=== PATIENT | female | born 1935 | race Caucasian/White ===

== ENCOUNTER 2016-09-14 07:47 | Inpatient (IN) | payer MEDICARE ==
--- NOTE | 2016-09-08 15:30 | HP ---
HISTORY AND PHYSICAL: DATE OF OFFICE VISIT: 09/03/16 DATE OF SURGERY: 09/14/16 SURGEON: Libertad Black MD PROCEDURE: Right total hip arthroplasty. CHIEF COMPLAINT: Right hip pain. HISTORY OF PRESENT ILLNESS: Ms. Espinoza is a 81-year-old female with complaints of right hip pain secondary to severe degenerative osteoarthritis. She has failed conservative management and has elected to proceed with a right total hip arthroplasty, which is scheduled for 09/14/16. PAST MEDICAL HISTORY: Pacemaker, first-degree AV block, AV stenosis, high cholesterol, hypertension, AFib, and mitral valve disease. PAST SURGICAL HISTORY: Pacemaker placement, left ankle ORIF, tubal ligation, deviated septum surgery, teeth extraction, cataracts removal. CURRENT MEDICATIONS: Tylenol, diltiazem, multivitamin, magnesium, vitamin C, Bone Restore, potassium, milk thistle, vitamin D3, CoQ10, Warren-3, warfarin, aspirin, atorvastatin, B complex, Flovent. ALLERGIES: SULFACETAMIDE and MIGNON INHIBITORS. FAMILY HISTORY: Breast cancer and heart disease. SOCIAL HISTORY: A 81-year-old female, she lives alone. She does not smoke or use drugs. She uses occasional alcohol. REVIEW OF SYSTEMS: A complete 14-point review of systems was reviewed with the patient. All is negative or noncontributory. PHYSICAL EXAMINATION GENERAL: She is well-developed, well-nourished. She is in no acute distress. VITAL SIGNS: She stands 5 feet tall, is 160 pounds. Her blood pressure is 130/ 94, heart rate is 88. HEENT: Normocephalic, atraumatic. NECK: Supple. No palpable lymph nodes. Trachea is midline. PULMONARY: The lungs are clear to auscultation bilaterally. CARDIO: Regular rate and rhythm. ABDOMEN: Soft, nontender, nondistended. NEUROLOGIC: She is alert and oriented x3. Cranial nerves II through XII are intact. MUSCULOSKELETAL: Right lower extremity, the skin is intact. She has limited range of motion with internal and external rotation of her right hip and she walks with an antalgic type gait. Her lower extremity muscle group strengths are intact at 5/5. She has 2+ dorsalis pedis pulses. ASSESSMENT AND PLAN: Ms. Espinoza is a 81-year-old female who complaints of right hip pain secondary to advanced osteoarthritis. She has failed conservative management and has elected to proceed with a right total hip arthroplasty, which is scheduled for 09/14/[address] Black discussed the risks and benefits of the surgery at today's visit and all her questions were answered. Colace and Percocet were sent to her pharmacy for postoperative pain control. She has prescription for Coumadin currently, so that was not sent at today's visit. She will follow up with Dr. Black in 10 to 14 days after the surgery. NADER HUANG [id number]/[facility] #: [id number] [facility]
[~2016-09-14 07:47] MED LIST: Buffered Lidocaine 1% SYRIN* 3 ML/SYR SYRINGE INTRADERM ONE; NS 0.9% 1000 ML* 1,000 ML IV SCH
[2016-09-14] MEDS ORDERED: ceFAZolin 2 GM PREMIX(*) 2 GM/50 ML BAG IVPB ONE (07:49)
[2016-09-14] MEDS ORDERED: fentaNYL* 50 MCG/ML 2 ML VIAL (100 MCG VIAL) ONE (08:41)
[2016-09-14] MEDS ORDERED: Midazolam* 1 MG/ML 2 ML VIAL (2 MG) ONE ×2 (08:41→10:44)
[2016-09-14] MEDS ORDERED: Morphine PF AMP (0.5MG/ML)* 5 MG/10 ML AMP ONE (10:11)
[2016-09-14] MEDS ORDERED: diPHENhydraMINE IV* 50 MG/ML 1 ml VIAL (BENADRYL) ONE (10:33)
[2016-09-14] MEDS ORDERED: Bupivacaine 0.5% SDV PF* 30 ML VIAL ONE (10:33)
[2016-09-14] MEDS ORDERED: Phenylephrine IV* 40 MCG/ML 10 ML SYRINGE ONE (10:44)
[2016-09-14] MEDS ORDERED: Phenylephrine INJ* 10 MG/ML 1 ML VIAL (10 MG) ONE (11:05)
[2016-09-14] MEDS ORDERED: Dexamethasone IV* 4 MG/ML 1 ML (4 MG) ONE (11:13)
[2016-09-14] MEDS ORDERED: Famotidine IV* 10 MG/ML 2 ML (20 mg) ONE (11:13)
[2016-09-14] MEDS ORDERED: DiMENhydriNATE IV* 50 MG/ML VIAL IV PUSH PRN (11:45)
[2016-09-14] MEDS ORDERED: fentaNYL* 50 MCG/ML 2 ML VIAL (100 MCG VIAL) IV PRN (11:45)
[2016-09-14] MEDS ORDERED: diPHENhydraMINE IV* 50 MG/ML 1 ml VIAL (BENADRYL) IV PRN ×2 (11:50→13:14)
[2016-09-14] MEDS ORDERED: HYDROcodone/ACETAMIN 5-325 MG* 1 TAB PO PRN (11:50)
[2016-09-14] MEDS ORDERED: PROCHLORPERAZINE INJ 5 MG/ML 2 ML VIAL IV PRN (11:50)
[2016-09-14] MEDS ORDERED: Nalbuphine* 20 MG/ML 1 ML VIAL IV PRN (11:50)
[2016-09-14] MEDS ORDERED: Ondansetron INJ* 2 MG/ML VIAL IV PRN ×2 (11:50→13:14)
[2016-09-14] MEDS ORDERED: Scopolamine 1.5 mg* PATCH TRANSDERM PRN (11:50)
[2016-09-14] MEDS ORDERED: Naloxone* 0.4 MG/ML 1 ML VIAL IV PRN (11:50)
[2016-09-14] MEDS ORDERED: oxyCODONE TAB* 5 MG TAB PO PRN (13:07)
[2016-09-14] MEDS ORDERED: oxyCODONE/Acetamin 5/325 MG* TAB PO PRN (13:07)
[2016-09-14] MEDS ORDERED: LACTULOSE* 30 ML UDC PO PRN (13:14)
[2016-09-14] MEDS ORDERED: Morphine INJ* 10 MG/ML 1 ML SYRINGE IV PRN (13:14)
[2016-09-14] MEDS ORDERED: Bisacodyl SUPP* 10 MG SUPP PR PRN (13:14)
[2016-09-14] MEDS ORDERED: diPHENhydraMINE LIQ* 12.5 MG/5 ML UDC PO PRN (13:14)
[2016-09-14] MEDS ORDERED: Polyethylene Glycol 3350* 17 GM PACKET PO PRN (13:14)
[2016-09-14] MEDS ORDERED: Ondansetron TAB* 4 MG PO PRN (13:14)
--- NOTE | 2016-09-14 13:18 | RAD ---
Indication: RIGHT total hip replacement. Comparison: August 28, 2016 Technique: LEFT lateral decubitus crosstable AP view lower pelvis and hips 1108 hours. Report: RIGHT prosthetic acetabular component in place. RIGHT femur test fit device/reamer in place. No periprosthetic fracture evident. Lateral subcutaneous emphysema. IMPRESSION: Procedural control film.
[2016-09-14] MEDS: Acetaminophen TAB* 325 MG PO SCH ×4 (13:20→21:39)
--- NOTE | 2016-09-14 13:48 | RAD ---
INDICATION: Right hip total arthroplasty. COMPARISON: Comparison is made with a prior x-ray study of the right hip from August 16, 2016. TECHNIQUE: 2 AP views of the pelvis and frontal and lateral views of the right hip were obtained. FINDINGS: The patient is status post total right hip replacement surgery. The bones and prostheses are in normal alignment. There is a small amount of air within the surrounding soft tissues consistent with the patient's recent surgery. IMPRESSION: STATUS POST TOTAL RIGHT HIP REPLACEMENT SURGERY.
[2016-09-14] MEDS ORDERED: Albuterol 2.5 MG/3 ML NEB.SOL* (0.083%) INH PRN (14:15)
[2016-09-14] MEDS ORDERED: Scopolamine 1.5 mg* PATCH ONE (15:48)
[2016-09-14] MEDS ORDERED: Warfarin TAB(*) 6 MG PO ONE (17:00)
[2016-09-14] MEDS: ceFAZolin 1 GM in Dextrose (*) 1 GM/50 ML BAG IVPB SCH (17:40)
--- NOTE | 2016-09-14 21:16 | CONS ---
CONSULTATION REPORT: DATE OF CONSULT: 09/14/16 PRIMARY CARE PROVIDER: Dr. Lombardi. ATTENDING PHYSICIAN WHILE IN THE HOSPITAL: Dr. Cheryl Bradford (report dictated by Anuel Uribe NP) REQUESTING PHYSICIAN FOR CONSULT: Dr. Libertad Black. REASON FOR MEDICAL CONSULT: Evaluation and management of comorbid medical conditions. HISTORY OF PRESENT ILLNESS: Ms. Espinoza is a 81-year-old female patient that has been dealing with for some time significant right hip pain. She sought care with Dr. Black and her team in the outpatient setting. The pain got to the point where it is affecting her activities of daily living. She failed conservative therapy. Ultimately, she elected to undergo a total hip replacement under the care of Dr. Black. She unfortunately carries a history of atrial fibrillation, aortic stenosis, hypertension, hyperlipidemia, and a history of asthma. She also has a history of atrial fibrillation, on chronic anticoagulation. We were asked to evaluate to help manage these medical problems in the postoperative setting. She is evaluated in the PACU. She said she is feeling well. She said her pain is well controlled. She denies having any chest pain. Denies having any shortness of breath, denies having any abdominal discomfort, says she feels a little nauseous, but she has not vomited. She actually says she feels a little thirsty and would like to try to eat something. She said she does not feel like she is going to faint. She denies having any chest pain or shortness of breath. She says that she has no numbness or tingling to lower extremities and she has finally gotten sensation back after receiving the spinal anesthetic, but because of her medical complexity, we were asked to evaluate in consult. PAST MEDICAL HISTORY: Significant for: 1. Aortic stenosis. 2. Hyperlipidemia. 3. Hypertension. 4. AFib. 5. Asthma. PAST SURGICAL HISTORY: She has had: 1. Pacemaker placement. 2. Left ankle ORIF. 3. Deviated septum repair. 4. Cataract extraction. 5. Tooth extraction. 6. Now right total hip replacement. MEDICATIONS: Home meds according to the preop list include: 1. Warfarin 2.5 mg to take as directed. 2. Vitamin B one capsule p.o. q.a.m. 3. Simvastatin 20 mg p.o. daily. 4. Potassium 99 mg p.o. q.a.m. 5. Needles-3 fatty acid 1200 mg p.o. q.a.m. 6. Multivitamin 1 tablet daily. 7. Milk thistle 700 mg p.o. b.i.d. 8. Magnesium 30 mg p.o. q.a.m. 9. Lovenox 30 mg subcu daily. 10. Flovent 2 puffs inhaled b.i.d. 11. Diltiazem CD 300 mg p.o. daily. 12. Coenzyme Q10 daily 13. D3 5000 units p.o. daily. 14. Aspirin 81 mg daily. 15. Vitamin C 1000 units p.o. daily. 16. Tylenol 500 mg p.o. every 6 hours as needed. ALLERGIES TO MEDICATIONS: Include TRAMADOL and SULFA. FAMILY HISTORY: Mother had a history of heart disease. Father had a history of rheumatic fever. SOCIAL HISTORY: She is former smoker. She rarely drinks alcohol. Surrogate decision maker is her daughter. REVIEW OF SYSTEMS: There is no documented fever. She denied having any significant weight change. There was no double vision. There is no ear discharge. She denies having any rhinorrhea. There is no sore throat. No thyroid enlargement. She denied having any chest pain. There is no orthopnea, there is no nocturnal dyspnea. There is no abdominal pain. No nausea, no vomiting. No dysuria, no frequency. No seizure, no loss of consciousness. No pruritus and no skin ulcerations. Review of 14 systems completed, all others negative. PHYSICAL EXAM: Reveals vital signs of blood pressure 100/55 with a pulse of 62 , respirations 14, O2 sat 96%, temperature was 97.7. Generally at this time, Ms. Espinoza is a 81-year-old female patient. She is sitting in the PACU. She does not appear to be in any acute distress. HEENT: Head is atraumatic and normocephalic. Eyes: EOMs are intact. Sclerae were anicteric and not pale. Throat: Oral mucosa appeared to be dry. No oropharyngeal erythema. Neck: Supple. Lungs are clear to auscultation bilaterally. No wheezes, rales, or rhonchi. Heart sounds S1 and S2, regular rate and rhythm. No murmurs, rubs, or gallops. Abdomen was soft, flat, nontender. Bowel sounds were hypoactive. Extremities: Pulses were 2+ throughout. Distal CSM checks were intact. She is unable to move her lower extremities as she is in a hip abductor pillow. She has upper extremity 5/5 strength. Neurologically, she is awake, alert, and oriented x3. Tongue midline. Planer Operator are equal. No gross focal deficits. Skin : Intact with exception she has got an incision to the right hip, which is covered with an Viraj dressing, which appeared to be intact. DIAGNOSTIC STUDIES/LAB DATA: She had an INR of 0.91. She had a urine that showed trace leukocyte esterase, 1+ wbc's, 2+ rbc's. Urine culture was negative. She had a preoperative chest x-ray, which again showed no acute disease. EKG showed a sinus rhythm, rate of 64. No ST elevations or T-wave inversions. Old medical records were reviewed. ASSESSMENT AND PLAN: Ms. Espinoza is a 81-year-old female patient coming in to the PACU today after an elective right total hip replacement. Recommendations at this point are: 1. Status post right total hip replacement. I will defer the management of this to Dr. Black and her team. 2. Atrial fibrillation. I will continue her Cardizem CD, but withhold parameters with blood pressure less than 100, as I do not want her to go in to atrial fibrillation or rapid ventricular response in the postoperative setting. So, we will continue diltiazem. She took it this morning. In addition to this, I see that Dr. Black and her team are restarting her warfarin. We will get that started as soon as possible and try to get the INR between 2 and 3. 3. History of aortic stenosis. We need to watch closely for fluid status and balance. We want to make sure she has a good free load. So, we will continue to monitor this. 4. Hyperlipidemia. Continue her current medical regimen. 5. Hypertension. Continue meds as prescribed. 6. History of asthma. I have ordered p.r.n. albuterol. I will continue her Flovent. 7. DVT prophylaxis. Per the primary team. 8. Fluids, electrolytes, and nutrition. She can have a regular diet. 9. Code status. Full code. TIME SPENT: On the consult was 60 minutes; greater than half the time spent face- to-face with the patient obtaining my history and physical; other half the time spent going over the plan of care with the patient and implementing the plan of care. I did discuss the plan of care with my attending, Dr. Bradford; she is in agreement. ANUEL URIBE NP CC: Dr. Lombardi; Dr. Black* [id number]/[facility] #: [id number] SIENNA
[2016-09-14] MEDS: PTO:Fluticasone HFA 44 mcg(NF) MDI INH SCH (21:38)
[2016-09-14] MEDS: Docusate CAP* 100 MG PO SCH (21:39)
[2016-09-14] MEDS: Atorvastatin* 10 MG TAB PO SCH (21:39)
[2016-09-14] MEDS: Magnesium Hydroxide LIQ* 30 ML UDC PO SCH (21:41)
[2016-09-15] MEDS ORDERED: diPHENhydraMINE LIQ* 12.5 MG/5 ML UDC PO PRN (02:00)
[2016-09-15] MEDS ORDERED: oxyCODONE TAB* 5 MG TAB PO PRN (02:00)
[2016-09-15] MEDS ORDERED: Ondansetron INJ* 2 MG/ML VIAL IV PRN (02:00)
[2016-09-15] MEDS ORDERED: Ondansetron TAB* 4 MG PO PRN (02:00)
[2016-09-15] MEDS ORDERED: oxyCODONE/Acetamin 5/325 MG* TAB PO PRN (02:00)
[2016-09-15] MEDS ORDERED: Morphine INJ* 10 MG/ML 1 ML SYRINGE IV PRN (02:00)
[2016-09-15] MEDS ORDERED: diPHENhydraMINE IV* 50 MG/ML 1 ml VIAL (BENADRYL) IV PRN (02:00)
[2016-09-15] MEDS: Acetaminophen TAB* 325 MG PO SCH ×3 (02:04→21:55)
[2016-09-15] MEDS: ceFAZolin 1 GM in Dextrose (*) 1 GM/50 ML BAG IVPB SCH (02:05)
[2016-09-15 06:19] LABS: Hemoglobin 10.8 g/dl (12.0-16.0)
[2016-09-15 06:28] LABS: Hematocrit 33 % (35-47)
[2016-09-15 06:36] LABS: Calcium 8.7 mg/dL (8.6-10.3); EGFR Non-African American 69.2 (>60); Potassium 4.7 mmol/L (3.5-5.0)
--- NOTE | 2016-09-15 07:13 | OP ---
DATE OF OPERATION: 09/14/16 - ROOM #349 DATE OF : 39 ATTENDING SURGEON: Libertad Black MD GLOST TILE SHADER: NADER De Paz ANESTHESIOLOGIST: Murphy Perry MD ANESTHESIA TYPE: Spinal. 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 OPERATIVE PROCEDURE: Right total hip arthroplasty. ESTIMATED BLOOD LOSS: 250 cc. COMPLICATIONS: None. SPECIMEN: Femoral head and acetabular reaming, sent to pathology. HARDWARE USED: This is [place] uncemented total hip hardware. For the acetabular cup, a size 52 Trident hemispherical 52E acetabular cup, 120 mm and 160 mm screw was used for added stability. The liner was a 42E MDM cementless liner. For the femoral stem, an Accolade TMZF size 2 with a 132-degree neck. For zoroastrianism, MDM X3 insert //48/42 E was chosen. The Dennis LFIT V40 femoral head with a 28, - 4 metal head. BRIEF HISTORY/INDICATION: Ms. Espinoza is a 81-year-old female with years of increasingly severe right hip pain. The patient failed conservative treatment with antiinflammatories, pain medication, ambulatory assistive devices, and physical therapy. Radiograph showed developmental dysplasia and severe end- stage arthritis of the hip. She elected to undergo right total hip arthroplasty due to continued pain and decreased quality of life. Informed consent was obtained from the patient. She understood the risks of the procedure included, but were not limited to bleeding, infection, damage to nearby structures, continued pain, need for further surgery, intraoperative fracture, nerve palsy, hardware failure or loosening, leg length discrepancy, dislocation, stroke, heart attack, blood clot, and . She wished to proceed. INTRAOPERATIVE FINDINGS: Intraoperatively, the patient was noted to have extremely loose soft tissue with laxity involving all range of motion of the hip. She was noted to have significant osteopenia as well. DESCRIPTION OF PROCEDURE: Ms. Espinoza was identified in the preanesthesia unit. Her right lower extremity was marked as the correct operative site. Informed consent was signed and placed in the chart. The patient was taken to the operating room and placed under spinal anesthesia. Roldan catheter was placed. She was placed in the left lateral decubitus position on the peg board. All bony prominences were well-padded. Right lower extremity was prepped and draped in the usual sterile fashion. Preop time-out was made to correctly identify the patient's side and site. A 14-cm posterior hip incision was made with a 10 blade and carried down to the lateral fascial layer. The lateral fascial layer was incised in line with the skin incision. Charnley retractor was placed. The piriformis and conjoined tendons were easily identified. These were elevated off the posterolateral femur using electrocautery. These were tagged with two #5 Ethibond's. Next, electrocautery was used to make a posterolateral capsular flap and this was also tagged with two #5 Ethibonds. The hip was carefully dislocated. The lesser trochanter to center of the femoral head measured 58 mm. Oscillating saw was used to make the appropriate femoral neck cut. The femoral head was sent to pathology. The femur was retracted anteriorly. After appropriate placement of retractors, the acetabulum was well visualized. A long-handled knife was used to remove any remaining acetabular labrum. Electrocautery was used to remove any soft tissue from the cotyloid notch. The acetabulum was sequentially reamed up to a size 52. There was a good bleeding bone bed. The Trident 52 E acetabular cup was chosen as the final implant. This was impacted into the acetabulum without difficulty and there was appropriate anteversion and abduction angle. A 120 mm and 160 mm screw was placed in the superior posterior quadrant. Due to the patient's extreme soft tissue laxity, the MDM hardware was chosen. An MDM cement with liner 42 E was chosen. This was impacted into the acetabulum without difficulty. Stability of the liner was checked and rechecked and the liner was noted to be stable. Attention was next turned to preparation of the femur. Significant osteopenia was noted. The canal finder was used to enter the proximal femur. The femur was sequentially broached up to a size 2. A 132 neck trial with a 28/48/42 E trial liner and a 28, -4 trial femoral head were chosen. Lesser trochanter to center of the femoral head measured 60 mm. The hip was reduced and taken through a range of motion. The hip was stable in all positions. Soft tissue tension and leg length were deemed to be appropriate. The hip was dislocated carefully. All trials were carefully removed. Final implant chosen was an Accolade TMZF size 2 with a 132-degree neck. This was impacted into the femoral canal without difficulty. A 28, -4 LFIT V40 femoral head was chosen as well as the E X3 MDM zoroastrianism insert. This was impacted onto the femoral neck without difficulty. The hip was reduced and taken through a range of motion. The hip was stable in all positions. Previously tagged capsule and tendons were reapproximated to the posterolateral femur through 2 trochanteric drill holes. The hip was copiously irrigated with sterile saline. The lateral fascial layer was reapproximated using interrupted #1 Vicryls. The rest of the incision was closed in a layered fashion using 0 and 2-0 Vicryls. The skin was closed using running 3-0 Monocryl and Dermabond. Sterile Adaptic, 4x4s, and paper tape were placed over the incision. The patient's anesthesia was reversed without difficulty. She was taken to the PACU in stable condition. Intended DVT prophylaxis will be Coumadin with a Lovenox bridge. Intended weightbearing will be weightbearing as tolerated with posterior hip precautions. [id number]/[facility] #: [id number] [facility]
[2016-09-15] MEDS: POTASSIUM 99 MG PO SCH (07:42)
[2016-09-15] MEDS: Diltiazem CD CAP* 120 MG PO SCH (08:11)
[2016-09-15] MEDS: Docusate CAP* 100 MG PO SCH ×2 (08:11→20:59)
[2016-09-15] MEDS: Diltiazem CD CAP* 180 MG PO SCH (08:11)
[2016-09-15] MEDS: PTO:Fluticasone HFA 44 mcg(NF) MDI INH SCH ×2 (08:11→21:00)
[2016-09-15] MEDS: Magnesium Hydroxide LIQ* 30 ML UDC PO SCH ×2 (08:50→20:59)
[2016-09-15] MEDS ORDERED: MAGNESIUM 30 MG PO SCH (09:00)
[2016-09-15] MEDS ORDERED: Diltiazem CD CAP* 240 MG PO SCH (09:00)
--- NOTE | 2016-09-15 09:24 | PN ---
Progress Note - Progress Note SOAP: Subjective: []Patient seen at bedside. Doing well, pain well managed. Denies c/o SOB, CP or dizziness. Objective: [] Vital Signs Temp 97.4 F 09/15/16 07:32 Pulse 76 09/15/16 07:32 Resp 18 09/15/16 08:11 BP 115/55 09/15/16 07:32 Pulse Ox 96 09/15/16 08:00 Intake & Output 09/14/16 09/15/16 09/15/16 18:59 06:59 18:59 Intake Total 2340 1690 945 Output Total 775 1325 Balance 1565 365 945 Weight 163 lb Intake: IV Fluids 2100 1030 570 ABX - CEFAZOLIN 50 LR 2050 980 570 NS 50ML, Cefazolin 2G 50 IVPB 55 ABX - CEFAZOLIN 55 Oral 240 660 320 Output: Roldan 425 1025 Emesis 100 300 Estimated Blood Loss 250 Other: # Bowel Movements 0 Laboratory Results - last 24 hr 09/15/16 09/15/16 09/15/16 05:43 05:43 05:43 Hgb 10.8 L Hct 33 L INR (Anticoag Therapy) 1.01 Sodium 137 Potassium 4.7 Chloride 104 Carbon Dioxide 25 Anion Gap 8 BUN 16 Creatinine 0.80 Est GFR ( Amer) 89.0 Est GFR (Non-Af Amer) 69.2 BUN/Creatinine Ratio 20.0 Glucose 127 H Calcium 8.7 Right hip dressing is clean and dry minimal edema calf non tender and soft +DF/PF right ankle sensation intact right foot Assessment: []s/p Right total hip arthroplasty POD #1 Plan: []PT/OT WBAT right LE Coumadin with Lovenox bridge, Patient on Coumadin pre operatively, will resume her regular dosage once she is therapeutic with INR between 2-3. Will give 6 mg today. Medicine following as well
[2016-09-15] MEDS ORDERED: Acetaminophen TAB* 325 MG ONE (12:50)
[2016-09-15] MEDS ORDERED: Enoxaparin(*) 30 MG/0.3 ML SYR SUBCUT SCH (14:00)
--- NOTE | 2016-09-15 14:37 | PN ---
Subjective Date of Service: 09/15/16 Interval History: Patient seen and examined at bedside. Pt states that she is feeling well. Denies fever, chills, shortness of breath, chest discomfort, N/V/D. Pt has not urinated since her urinary catheter was removed earlier today. Per NS staff she was noted to have a HR 150's this morning when she first got up, this quickly returned to her baseline in the 80's. Family History: Unchanged from Admission Social History: Unchanged from Admission Past Medical History: Unchanged from Admission Objective Active Medications: Acetaminophen (Tylenol Tab*) 975 mg PO Q8H ROBIN Albuterol (Ventolin 2.5 Mg/3 Ml Neb.Leslie*) 2.5 mg INH Q2H PRN Reason: SOB/ WHEEZING Atorvastatin Calcium (Lipitor*) 10 mg PO BEDTIME ROBIN Bisacodyl (Dulcolax Supp*) 10 mg [place] DAILY PRN Reason: constipation Diltiazem HCl (Cardizem Cd Cap*) 120 mg PO QAM ROBIN Diltiazem HCl (Cardizem Cd Cap*) 180 mg PO QAM ROBIN Diphenhydramine HCl (Benadryl Iv*) 12.5 mg IV Q6HR PRN Reason: PRURITIS Diphenhydramine HCl (Benadryl Liq*) 12.5 mg PO Q6HR PRN Reason: ITCHING Docusate Sodium (Colace Cap*) 100 mg PO BID ROBIN Enoxaparin Sodium (Lovenox(*)) 30 mg SUBCUT Q24H ROBIN Fluticasone Propionate (Flovent Hfa 44 Mcg(Nf)) 2 puff INH BID ROBIN Lactated Ringer's (Lactated Ringers 1000 Ml Bag*) 1,000 mls @ 100 mls/hr IV PER RATE ROBIN Lactulose (Lactulose*) 30 ml PO Q6H PRN Reason: constipation Magnesium Hydroxide (Milk Of Magnesia Liq*) 30 ml PO BID ROBIN Non-Formulary Medication (Magnesium [Magnesium]) 30 mg PO QAM ROBIN Non-Formulary Medication (Potassium [Chelated Potassium]) 99 mg PO QAM ROBIN Ondansetron HCl (Zofran Inj*) 4 mg IV Q6HR PRN Reason: NAUSEA Ondansetron HCl (Zofran Tab*) 4 mg PO Q6HR PRN Reason: NAUSEA Oxycodone HCl (Roxycodone Tab*) 5 mg PO Q4H PRN Reason: PAIN - BREAKTHROUGH Pharmacy Profile Note (Scopolomine Patch Remove*) 1 note PATCH OFF .AFTER 72 HOURS PRN Reason: nausea Stop: 09/17/16 11:51 Pharmacy Profile Note (Coumadin Daily Reminder*) 1 note FOLLOW UP 17[facility] Polyethylene Glycol/Electrolytes (Miralax*) 17 gm PO DAILY PRN Reason: Constipation Scopolamine (Transderm-Scop 1.5 Mg Patch*) 1 patch TRANSDERM Q72H PRN Reason: nausea Warfarin Sodium (Coumadin Tab(*)) 6 mg PO ONCE@[facility] Stop: 09/15/16 17:01 Vital Signs 09/14/16 09/14/16 09/14/16 14:45 15:41 16:00 Temperature 96.7 F Pulse Rate 62 76 Respiratory 16 16 Rate Blood Pressure 100/58 118/55 (mmHg) O2 Sat by Pulse 97 99 98 Oximetry 09/14/16 09/14/16 09/14/16 16:12 16:15 17:16 Temperature 96.7 F 96.8 F Pulse Rate 72 74 Respiratory 14 15 Rate Blood Pressure 106/51 100/55 (mmHg) O2 Sat by Pulse 97 98 Oximetry 09/14/16 09/14/16 09/14/16 19:27 19:33 19:38 Temperature 97.2 F Pulse Rate 60 Respiratory 16 16 16 Rate Blood Pressure 104/63 (mmHg) O2 Sat by Pulse 97 Oximetry 09/14/16 09/14/16 09/14/16 21:24 21:35 23:42 Temperature 96.8 F 97.6 F Pulse Rate 62 70 64 Respiratory 14 16 16 Rate Blood Pressure 101/46 84/42 (mmHg) O2 Sat by Pulse 97 97 96 Oximetry 09/15/16 09/15/16 09/15/16 00:29 03:30 04:52 Temperature 97.6 F Pulse Rate 67 Respiratory 16 16 Rate Blood Pressure 102/78 120/59 (mmHg) O2 Sat by Pulse 94 Oximetry 09/15/16 09/15/16 09/15/16 06:52 07:32 08:00 Temperature 97.4 F Pulse Rate 76 Respiratory 16 16 18 Rate Blood Pressure 115/55 (mmHg) O2 Sat by Pulse 96 96 Oximetry 09/15/16 09/15/16 09/15/16 08:11 09:46 09:59 Temperature Pulse Rate 152 69 Respiratory 18 Rate Blood Pressure 137/54 (mmHg) O2 Sat by Pulse 97 93 Oximetry 09/15/16 09/15/16 10:11 11:20 Temperature 97.6 F Pulse Rate 72 Respiratory 18 16 Rate Blood Pressure 125/58 (mmHg) O2 Sat by Pulse 93 Oximetry Oxygen Devices in Use Now: None Appearance: NAD, sitting up in bed Eyes: No Scleral Icterus, PERRLA Ears/Nose/Mouth/Throat: Mucous Membranes Moist Respiratory: Symmetrical Chest Expansion and Respiratory Effort, Clear to Auscultation Cardiovascular: NL Sounds; No Murmurs; No JVD, RRR Extremities: No Edema Skin: No Rash or Ulcers Neurological: Alert and Oriented x 3, NL Muscle Strength and Tone Lines/Tubes/Other Access: Clean, Dry and Intact Peripheral IV - site benign Nutrition: Taking PO's Result Diagrams: 09/15/16 05:43 09/15/16 05:43 Assess/Plan/Problems-Billing Assessment: Ms. Espinoza is a 81 yo female with PMH significant for aortic stenosis, HLD, HTN, afib, and asthma who presented to the hospital for an elective right total knee replacement. - Patient Problems (1) Status post total hip replacement, right Code(s): Z96.641 - PRESENCE OF RIGHT ARTIFICIAL HIP JOINT SNOMED Code(s): 442517599199 Comment: - POD #1 - Management per Ortho - Trend HH - OT/PT - Pain control and bowel regime (2) Afib Code(s): I48.91 - UNSPECIFIED ATRIAL FIBRILLATION SNOMED Code(s): 35629241 Comment: - HR controlled - Continue Cardizem CD and coumadin (3) Aortic stenosis Code(s): I35.0 - NONRHEUMATIC AORTIC (VALVE) STENOSIS SNOMED Code(s): 20023784 Comment: - Monitor fluid status and balance (4) HLD (hyperlipidemia) Code(s): E78.5 - HYPERLIPIDEMIA, UNSPECIFIED SNOMED Code(s): 08821541 Comment: - Continue statin (5) HTN (hypertension) Code(s): I10 - ESSENTIAL (PRIMARY) HYPERTENSION SNOMED Code(s): 55508542 Comment: - Normotensive (6) Asthma Code(s): J45.909 - UNSPECIFIED ASTHMA, UNCOMPLICATED SNOMED Code(s): 547301547 Comment: - Continue Flovent and PRN albuterol (7) DVT prophylaxis Code(s): OOC0833 - SNOMED Code(s): 936599679 Comment: - Lovenox bridge to Warfarin per Ortho (8) Full code status Code(s): Z78.9 - OTHER SPECIFIED HEALTH STATUS SNOMED Code(s): 213718366 Status and Disposition: Inpatient. Disposition per Orthopedics
[2016-09-15] MEDS ORDERED: Warfarin TAB(*) 6 MG PO SCH (17:00)
[2016-09-15] MEDS: Atorvastatin* 10 MG TAB PO SCH (20:59)
[2016-09-16 06:12] LABS: Hematocrit 26 % (35-47); Hemoglobin 8.4 g/dl (12.0-16.0)
[2016-09-16] MEDS: Acetaminophen TAB* 325 MG PO SCH ×3 (06:14→22:10)
[2016-09-16] MEDS: Diltiazem CD CAP* 180 MG PO SCH (08:07)
[2016-09-16] MEDS: Diltiazem CD CAP* 120 MG PO SCH (08:07)
[2016-09-16] MEDS: PTO:Fluticasone HFA 44 mcg(NF) MDI INH SCH ×2 (08:07→22:49)
[2016-09-16] MEDS: Docusate CAP* 100 MG PO SCH ×2 (08:07→22:15)
[2016-09-16] MEDS: Magnesium Hydroxide LIQ* 30 ML UDC PO SCH ×2 (08:07→22:15)
[2016-09-16] MEDS: MAGNESIUM 500 MG PO SCH (08:08)
[2016-09-16] MEDS: POTASSIUM 99 MG PO SCH (08:08)
--- NOTE | 2016-09-16 11:32 | PN ---
Progress Note - Progress Note SOAP: Subjective: []Patient seen OOB in chair. Reports feeling a little dizzy at times when standing. Looks pale. Agrees that she will need some short term rehab, prefers [facility]. Objective: [] Vital Signs Temp 98.4 F 09/16/16 07:23 Pulse 86 09/16/16 07:23 Resp 18 09/16/16 08:00 BP 108/46 09/16/16 07:23 Pulse Ox 95 09/16/16 08:00 Intake & Output 09/15/16 09/16/16 09/16/16 18:59 06:59 18:59 Intake Total 2115 1690 320 Output Total 1790 2450 Balance 325 -760 320 Intake: IV Fluids 570 LR 570 IVPB 55 ABX - CEFAZOLIN 55 Oral 1490 1690 320 Output: Urine 1340 2450 Roldan 450 Other: # Bowel Movements 0 Estimated Stool Amount Large Laboratory Results - last 24 hr 09/16/16 09/16/16 06:01 06:01 Hgb 8.4 L Hct 26 L INR (Anticoag Therapy) 1.50 H Right hip dressing changed earlier by Dr. Black, reported benign, dry and intact calf NT and soft +DF/PF right ankle Assessment: []s/p Right total hip arthroplasty POD #2 post operative anemia Plan: []PT/OT WBAT Coumadin w Lovenox bridge. 6 mg today. If INR at 2 tomorrow resume regular coumadin dosage as pre op. Post operative anemia secondary to blood loss with underlying cardiac co morbidities/ symptomatic- recommend 1 Unit PRBC today SNF rehab- requests [facility]
--- NOTE | 2016-09-16 12:48 | PN ---
Subjective Date of Service: 09/16/16 Interval History: Patient seen and examined at bedside. Pt states that she feels wells today, but is having pain with movement. Denies fever, chills, shortness of breath, chest discomfort, N/V/D. Pt states that she has been able to move her bowels postoperative. Family History: Unchanged from Admission Social History: Unchanged from Admission Past Medical History: Unchanged from Admission Objective Active Medications: Acetaminophen (Tylenol Tab*) 975 mg PO Q8H ROBIN Albuterol (Ventolin 2.5 Mg/3 Ml Neb.Leslie*) 2.5 mg INH Q2H PRN Reason: SOB/ WHEEZING Atorvastatin Calcium (Lipitor*) 10 mg PO BEDTIME ROBIN Bisacodyl (Dulcolax Supp*) 10 mg [place] DAILY PRN Reason: constipation Diltiazem HCl (Cardizem Cd Cap*) 120 mg PO QAM ROBIN Diltiazem HCl (Cardizem Cd Cap*) 180 mg PO QAM ROBIN Diphenhydramine HCl (Benadryl Iv*) 12.5 mg IV Q6HR PRN Reason: PRURITIS Diphenhydramine HCl (Benadryl Liq*) 12.5 mg PO Q6HR PRN Reason: ITCHING Docusate Sodium (Colace Cap*) 100 mg PO BID [facility] Fluticasone Propionate (Flovent Hfa 44 Mcg(Nf)) 2 puff INH BID [facility] Lactated Ringer's (Lactated Ringers 1000 Ml Bag*) 1,000 mls @ 100 mls/hr IV PER RATE [facility] Lactulose (Lactulose*) 30 ml PO Q6H PRN Reason: constipation Magnesium Hydroxide (Milk Of Magnesia Liq*) 30 ml PO BID [facility] Pto: Potassium [ Chelated Potassium] 99 Mg 99 mg PO QAM [facility] Pto: Magnesium [ (Magnesium] 500 Mg) 500 mg PO QAM [facility] Ondansetron HCl (Zofran Inj*) 4 mg IV Q6HR PRN Reason: NAUSEA Ondansetron HCl (Zofran Tab*) 4 mg PO Q6HR PRN Reason: NAUSEA Oxycodone HCl (Roxycodone Tab*) 5 mg PO Q4H PRN Reason: PAIN - BREAKTHROUGH Pharmacy Profile Note (Scopolomine Patch Remove*) 1 note PATCH OFF .AFTER 72 HOURS PRN Reason: nausea Stop: 09/17/16 11:51 Pharmacy Profile Note (Coumadin Daily Reminder*) 1 note FOLLOW UP 1700 [facility] Polyethylene Glycol/Electrolytes (Miralax*) 17 gm PO DAILY PRN Reason: Constipation Scopolamine (Transderm-Scop 1.5 Mg Patch*) 1 patch TRANSDERM Q72H PRN Reason: nausea Warfarin Sodium (Coumadin Tab(*)) 6 mg PO ONCE@1700 ONE Stop: 09/16/16 17:01 Vital Signs 09/15/16 09/15/16 09/15/16 15:01 15:29 16:00 Temperature Pulse Rate 75 80 Respiratory 16 20 Rate Blood Pressure 128/52 (mmHg) O2 Sat by Pulse 98 94 94 Oximetry 09/15/16 09/15/16 09/15/16 20:00 20:24 23:45 Temperature 98.1 F 98.2 F Pulse Rate 77 83 Respiratory 18 18 18 Rate Blood Pressure 127/47 105/39 (mmHg) O2 Sat by Pulse 92 96 Oximetry 09/16/16 09/16/16 09/16/16 03:32 07:23 08:00 Temperature 98.2 F 98.4 F Pulse Rate 87 86 Respiratory 18 14 14 Rate Blood Pressure 108/48 108/46 (mmHg) O2 Sat by Pulse 94 95 95 Oximetry 09/16/16 11:49 Temperature 98.1 F Pulse Rate 100 Respiratory 15 Rate Blood Pressure 135/52 (mmHg) O2 Sat by Pulse 95 Oximetry Oxygen Devices in Use Now: None Appearance: NAD, sitting up in a chair Eyes: No Scleral Icterus, PERRLA Ears/Nose/Mouth/Throat: Mucous Membranes Moist Respiratory: Symmetrical Chest Expansion and Respiratory Effort, Clear to Auscultation Cardiovascular: NL Sounds; No Murmurs; No JVD, RRR Abdominal: NL Sounds; No Tenderness; No Distention Extremities: - - Trace to 1+ edema right LE Skin: - - Dressing to right hip clean, dry and intact Neurological: Alert and Oriented x 3, NL Muscle Strength and Tone Lines/Tubes/Other Access: Clean, Dry and Intact Peripheral IV - site benign Nutrition: Taking PO's Result Diagrams: 09/16/16 06:01 09/15/16 05:43 Assess/Plan/Problems-Billing Assessment: Ms. Espinoza is a 81 yo female with PMH significant for aortic stenosis, HLD, HTN, afib, and asthma who presented to the hospital for an elective right total knee replacement. - Patient Problems (1) Status post total hip replacement, right Code(s): Z96.641 - PRESENCE OF RIGHT ARTIFICIAL HIP JOINT SNOMED Code(s): 871783984744 Comment: - POD #2 - Management per Ortho - Trend HH, HH down to 8.4/26 today. Pt will receive a unit of RBCs per Ortho - OT/PT - Pain control and bowel regime (2) Postoperative delirium Code(s): F05 - DELIRIUM DUE TO KNOWN PHYSIOLOGICAL CONDITION SNOMED Code(s): 3560240 Comment: - Confusion improved - Limit Narcotics - Supportive care (3) Afib Code(s): I48.91 - UNSPECIFIED ATRIAL FIBRILLATION SNOMED Code(s): 20711970 Comment: - HR controlled - Continue Cardizem CD and coumadin (4) Aortic stenosis Code(s): I35.0 - NONRHEUMATIC AORTIC (VALVE) STENOSIS SNOMED Code(s): 01661492 Comment: - Monitor fluid status and balance (5) HLD (hyperlipidemia) Code(s): E78.5 - HYPERLIPIDEMIA, UNSPECIFIED SNOMED Code(s): 63410757 Comment: - Continue statin (6) HTN (hypertension) Code(s): I10 - ESSENTIAL (PRIMARY) HYPERTENSION SNOMED Code(s): 77216137 Comment: - Normotensive (7) Asthma Code(s): J45.909 - UNSPECIFIED ASTHMA, UNCOMPLICATED SNOMED Code(s): 199572273 Comment: - Continue Flovent and PRN albuterol (8) DVT prophylaxis Code(s): OQW1513 - SNOMED Code(s): 141260593 Comment: - Lovenox bridge to Warfarin per Ortho (9) Full code status Code(s): Z78.9 - OTHER SPECIFIED HEALTH STATUS SNOMED Code(s): 801236939 Status and Disposition: Inpatient. Disposition per Orthopedics
[2016-09-16] MEDS: oxyCODONE TAB* 5 MG TAB PO PRN (13:07)
[2016-09-16] MEDS ORDERED: Warfarin TAB(*) 6 MG PO ONE (17:00)
[2016-09-16] MEDS: Atorvastatin* 10 MG TAB PO SCH (22:10)
[2016-09-17] MEDS: oxyCODONE TAB* 5 MG TAB PO PRN ×2 (03:55→10:21)
[2016-09-17 06:55] LABS: Hematocrit 26 % (35-47); Hemoglobin 8.5 g/dl (12.0-16.0)
[2016-09-17] MEDS: Acetaminophen TAB* 325 MG PO SCH (07:19)
[2016-09-17] MEDS: Magnesium Hydroxide LIQ* 30 ML UDC PO SCH (08:37)
[2016-09-17] MEDS: Diltiazem CD CAP* 180 MG PO SCH (08:43)
[2016-09-17] MEDS: Diltiazem CD CAP* 120 MG PO SCH (08:43)
[2016-09-17] MEDS: MAGNESIUM 500 MG PO SCH (08:44)
[2016-09-17] MEDS: POTASSIUM 99 MG PO SCH (08:44)
[2016-09-17] MEDS: Docusate CAP* 100 MG PO SCH (08:44)
[2016-09-17] MEDS: PTO:Fluticasone HFA 44 mcg(NF) MDI INH SCH (08:45)
--- NOTE | 2016-09-17 09:09 | PN ---
Progress Note - Progress Note SOAP: Subjective: Pt states she is doing well. She is feeling better after the transfusion. She denies CP,SOB, F/C, lightheadedness or calf pain. She has had a BM. VSS Objective: PE: 81 y/o WDWN F NAD RLE- dressing changes, inc c/d/i with no signs of infection, +PF/DF ankle, calf soft nontender, +2 DP pulse, sensation intact Vital Signs Temp Pulse Resp BP Pulse Ox 99.3 F 100 18 110/48 94 09/17/16 08:08 09/17/16 08:08 09/17/16 08:08 09/17/16 08:08 09/17/16 08:08 Laboratory Results - last 24 hr 09/16/16 09/17/16 09/17/16 06:01 06:20 06:20 Hgb 8.5 L Hct 26 L INR (Anticoag Therapy) 1.84 H Blood Type AB Positive Antibody Screen Negative Crossmatch See Detail Assessment: POD 3 s/p RTHA post op anemia treated with transfusion Plan: H&H and symptoms improved with transfusion DC to SNF today cont coumadin, percocet and colace WBAT- cont PT/OT F/U 10-[address] Black
[2016-09-17] MEDS ORDERED: Scopolomine PATCH Remove* 1 NOTE MISC PATCH OFF PRN (11:50)
[2016-09-17 12:12] VITALS: BP 123/56
--- NOTE | 2016-09-17 13:02 | DS ---
DISCHARGE SUMMARY: DATE OF ADMISSION: 09/14/16 DATE OF DISCHARGE: 09/17/16 PROVIDER: Dr. Libertad Black. ADMITTING DIAGNOSIS: Right total hip arthroplasty for severe right hip osteoarthritis. SECONDARY DIAGNOSES: 1. Pacemaker. 2. First-degree atrioventricular block. 3. Aortic valve stenosis. 4. High cholesterol. 5. Hypertension. 6. Atrial fibrillation. 7. Mitral valve disease. CONSULTATION: Physical Therapy, Occupational Therapy, and Medicine. HISTORY OF PRESENT ILLNESS: Ms. Espinoza is a 81-year-old female with complaints of right hip pain due to severe osteoarthritis. She has failed conservative management and elected to proceed with a rig ht total hip arthroplasty with Dr. Black on 09/14/16. HOSPITAL COURSE: Ms. Espinoza was admitted to [facility] on 09/14/16. She underwent a righ t total hip arthroplasty. Postoperatively, she recovered on the short-stay surgical unit. Postop d ay 1, the Roldan was removed and she was able to urinate on her own. She was advanced to regular t without difficulty and her pain was controlled with p.o. Percocet and she was restarted on home me dications. Her labs and vitals remain stable. She was able to bear weight as tolerated on the right lower extremity. She appropriately progressed with physical therapy and occupational therapy. She had a symptomatic postop anemia and was given 2 units of blood during her stay. This improved her symptoms and improved her hemoglobin and hematocrit. Her DVT prophylaxis was managed with Lovenox a nd Coumadin until she reached a therapeutic INR. By postop day 3, she was orthopedically and medica lly stable for discharge to a senior nursing facility. The patient's INR on 09/17/16 was 1.84. DISCHARGE CONDITION: Stable. DISCHARGE MEDICATIONS: Home medications continued on discharge include: 1. [place]-3 fatty acid 1200 mg p.o. every morning. 2. Milk thistle 700 mg p.o. twice a day. 3. Fluticasone 2 puffs inhalation twice a day. 4. Warfarin sodium 5 mg tablets, take as instructed by doctor. 5. Vitamin D3 5000 units by mouth every morning. 6. Aspirin 81 mg by mouth every evening. 7. Potassium 99 mg p.o. every morning. 8. Ascorbic acid 1000 mg p.o. every morning. 9. Multivitamin 1 cap p.o. every morning. 10. Magnesium 500 mg, 30 mg p.o. every morning. 11. CoQ10 50 mg p.o. every morning. 12. Diltiazem 300 mg p.o. every morning. 13. Simvastatin 20 mg at bedtime. 14. Acetaminophen 500 mg p.o. q.6 hours as needed for pain. 15. Vitamin B complex 1 cap every morning. Her Lovenox 30 mg subcu daily was discontinued. New medications on discharge to include: 1. Colace 100 mg twice a day for constipation. 2. Percocet 5/325 one or two tabs every 4 to 6 hours as needed for pain. DISCHARGE INSTRUCTIONS: The patient should keep the incision clean and dry. She may shower postop day 4. The nurses may change her dressing. She should not submerge the wound in water. She is jesenia ghtbearing as tolerated right lower extremity. She should continue physical therapy and occupationa l therapy. She will continue Coumadin while at rehab with biweekly INR draws. Her Coumadin dose on September 17 will be 4 mg, September 18 2 mg, and September 19 2 mg. Medical services will manage the do sing at the [facility]. She will continue Percocet for pain, Coumadin for DVT prophyla xis, and Colace for constipation. She will follow up with Dr. Black in 10 to 14 days. She was inst ructed to call office or go to the ER if she develops chest pain, shortness of breath, calf pain, or fever greater than 101.5. NADER CROWLEY [id number]/[facility] #: [id number]
--- NOTE | 2016-09-17 14:02 | PN ---
Subjective Date of Service: 09/17/16 Interval History: Patient seen and examined at bedside. Pt states that she feels well today, but feels a little "out of it" after oxycodone. Denies fever, chills, shortness of breath, chest discomfort, N/V/D. Reports right hip pain, but it is controlled with pain medication. Family History: Unchanged from Admission Social History: Unchanged from Admission Past Medical History: Unchanged from Admission Objective Active Medications: Acetaminophen (Tylenol Tab*) 975 mg PO Q8H ROBIN Albuterol (Ventolin 2.5 Mg/3 Ml Neb.Leslie*) 2.5 mg INH Q2H PRN Reason: SOB/ WHEEZING Atorvastatin Calcium (Lipitor*) 10 mg PO BEDTIME [facility] Bisacodyl (Dulcolax Supp*) 10 mg [place] DAILY PRN Reason: constipation Diltiazem HCl (Cardizem Cd Cap*) 120 mg PO QAM [facility] Diltiazem HCl (Cardizem Cd Cap*) 180 mg PO QAM [facility] Diphenhydramine HCl (Benadryl Iv*) 12.5 mg IV Q6HR PRN Reason: PRURITIS Diphenhydramine HCl (Benadryl Liq*) 12.5 mg PO Q6HR PRN Reason: ITCHING Docusate Sodium (Colace Cap*) 100 mg PO BID [facility] Fluticasone Propionate (Flovent Hfa 44 Mcg(Nf)) 2 puff INH BID [facility] Lactated Ringer's (Lactated Ringers 1000 Ml Bag*) 1,000 mls @ 100 mls/hr IV PER RATE [facility] Lactulose (Lactulose*) 30 ml PO Q6H PRN Reason: constipation Magnesium Hydroxide (Milk Of Magnesia Liq*) 30 ml PO BID [facility] Pto: Potassium [ Chelated Potassium] 99 Mg 99 mg PO QAM [facility] Pto: Magnesium [ (Magnesium] 500 Mg) 500 mg PO QAM [facility] Ondansetron HCl (Zofran Inj*) 4 mg IV Q6HR PRN Reason: NAUSEA Ondansetron HCl (Zofran Tab*) 4 mg PO Q6HR PRN Reason: NAUSEA Oxycodone HCl (Roxycodone Tab*) 5 mg PO Q4H PRN Reason: PAIN - BREAKTHROUGH Pharmacy Profile Note (Coumadin Daily Reminder*) 1 note FOLLOW UP 1700 [facility] Polyethylene Glycol/Electrolytes (Miralax*) 17 gm PO DAILY PRN Reason: Constipation Scopolamine (Transderm-Scop 1.5 Mg Patch*) 1 patch TRANSDERM Q72H PRN Reason: nausea Vital Signs 09/16/16 09/16/16 09/16/16 14:20 15:07 16:00 Temperature 98.1 F Pulse Rate 91 Respiratory 16 18 Rate Blood Pressure 119/51 (mmHg) O2 Sat by Pulse 94 94 Oximetry 09/16/16 09/16/16 09/16/16 16:28 19:17 20:00 Temperature 98.1 F 97.7 F Pulse Rate 87 97 104 Respiratory 16 24 18 Rate Blood Pressure 117/51 127/55 (mmHg) O2 Sat by Pulse 95 95 91 Oximetry 09/16/16 09/17/16 09/17/16 23:00 03:51 03:55 Temperature 99.2 F 98.7 F Pulse Rate 104 96 Respiratory 18 18 18 Rate Blood Pressure 122/53 128/43 (mmHg) O2 Sat by Pulse 91 97 Oximetry 09/17/16 09/17/16 09/17/16 05:55 07:15 08:08 Temperature 99.3 F Pulse Rate 100 Respiratory 16 16 18 Rate Blood Pressure 110/48 (mmHg) O2 Sat by Pulse 94 94 Oximetry 09/17/16 09/17/16 10:21 11:47 Temperature 97.8 F Pulse Rate 89 Respiratory 16 19 Rate Blood Pressure 123/56 (mmHg) O2 Sat by Pulse 94 Oximetry Oxygen Devices in Use Now: None Appearance: NAD, sitting up in a chair Eyes: No Scleral Icterus, PERRLA Ears/Nose/Mouth/Throat: Mucous Membranes Moist Respiratory: Symmetrical Chest Expansion and Respiratory Effort, Clear to Auscultation Cardiovascular: NL Sounds; No Murmurs; No JVD, RRR Abdominal: NL Sounds; No Tenderness; No Distention Skin: No Rash or Ulcers Neurological: Alert and Oriented x 3, NL Muscle Strength and Tone Lines/Tubes/Other Access: Clean, Dry and Intact Peripheral IV - site benign Nutrition: Taking PO's Result Diagrams: 09/17/16 06:20 09/15/16 05:43 Assess/Plan/Problems-Billing Assessment: Ms. Espinoza is a 81 yo female with PMH significant for aortic stenosis, HLD, HTN, afib, and asthma who presented to the hospital for an elective right total knee replacement. - Patient Problems (1) Status post total hip replacement, right Code(s): Z96.641 - PRESENCE OF RIGHT ARTIFICIAL HIP JOINT SNOMED Code(s): 917638294404 Comment: - POD #3 - Management per Ortho - HH stable, received 1 unit RBCs yesterday - OT/PT - Pain control and bowel regime (2) Postoperative delirium Code(s): F05 - DELIRIUM DUE TO KNOWN PHYSIOLOGICAL CONDITION SNOMED Code(s): 6567844 Comment: - Confusion improved - Limit Narcotics - Supportive care (3) Afib Code(s): I48.91 - UNSPECIFIED ATRIAL FIBRILLATION SNOMED Code(s): 52352473 Comment: - HR controlled, slight tachy - Continue Cardizem CD and coumadin (4) Aortic stenosis Code(s): I35.0 - NONRHEUMATIC AORTIC (VALVE) STENOSIS SNOMED Code(s): 42356658 Comment: - Monitor fluid status and balance (5) HLD (hyperlipidemia) Code(s): E78.5 - HYPERLIPIDEMIA, UNSPECIFIED SNOMED Code(s): 41748882 Comment: - Continue statin (6) HTN (hypertension) Code(s): I10 - ESSENTIAL (PRIMARY) HYPERTENSION SNOMED Code(s): 26901011 Comment: - Normotensive (7) Asthma Code(s): J45.909 - UNSPECIFIED ASTHMA, UNCOMPLICATED SNOMED Code(s): 399273956 Comment: - Continue Flovent and PRN albuterol (8) DVT prophylaxis Code(s): LAY3984 - SNOMED Code(s): 323469882 Comment: - Warfarin per Ortho (9) Full code status Code(s): Z78.9 - OTHER SPECIFIED HEALTH STATUS SNOMED Code(s): 060555353 Status and Disposition: Inpatient. Disposition per Orthopedics
== END 2016-09-17 15:02 | DRG 470 ==
LOC: AA 07:47 → SSU 15:06
PROVIDERS: ADMIT Orthopaedic Surgery Adult Reconstructive Orthopaedic Surgery; ATTEND Orthopaedic Surgery Adult Reconstructive Orthopaedic Surgery
PROC: 0SR903A Replacement of Right Hip Joint with Ceramic Synthetic Substitute, Uncemented, Open Approach (ICD-10-PCS; 2016-09-14)
PROC: 30233N1 Transfusion of Nonautologous Red Blood Cells into Peripheral Vein, Percutaneous Approach (ICD-10-PCS; principal; 2016-09-16)
DX: M16.11 Unilateral primary osteoarthritis, right hip (principal); F05 Delirium due to known physiological condition; I48.91 Unspecified atrial fibrillation; D62 Acute posthemorrhagic anemia; I44.0 Atrioventricular block, first degree; I35.0 Nonrheumatic aortic (valve) stenosis; E78.00 Pure hypercholesterolemia, unspecified; I10 Essential (primary) hypertension; I05.9 Rheumatic mitral valve disease, unspecified; J45.909 Unspecified asthma, uncomplicated; E78.5 Hyperlipidemia, unspecified; F41.9 Anxiety disorder, unspecified; M85.88 Other specified disorders of bone density and structure, other site; Z95.0 Presence of cardiac pacemaker; Z98.49 Cataract extraction status, unspecified eye; Z98.51 Tubal ligation status; Z88.8 Allergy status to other drugs, medicaments and biological substances; Z88.2 Allergy status to sulfonamides; Z82.49 Family history of ischemic heart disease and other diseases of the circulatory system; Z80.3 Family history of malignant neoplasm of breast; Z87.891 Personal history of nicotine dependence; Q65.89 Other specified congenital deformities of hip; Z79.01 Long term (current) use of anticoagulants; Z79.82 Long term (current) use of aspirin
CPT/HCPCS: 36415; 80048; 85014; 85018; 85610; 86850; 86900; 86901; 86922; 94760; A9270-GY; C1713; C1776; J0690; J0780; J1100; J1200; J1650; J2250; J3010; P9040

== ENCOUNTER 2018-05-05 08:03 | Emergency (ER) | payer MEDICARE ==
[2018-05-05 08:36] VITALS: BP 156/71
[2018-05-05] MEDS ORDERED: Lidocaine 2% W/EPI 1:100,000* 20 ML MDV INJ ONE (08:47)
[2018-05-05] MEDS ORDERED: Tetan/Diph/Pertus SYR(Tdap)* 0.5 ML SYR(BOOSTRIX) use SYR IM ONE (09:18)
--- NOTE | 2018-05-05 10:00 | UC ---
Laceration HPI - HPI Summary HPI Summary: laceration right foot x 1 days cut her right foot on a sharp object "the laceration is small but can't stop the bleeding" pt. is on cumadin - History Of Current Complaint Chief Complaint: UCLaceration Stated Complaint: RIGHT FOOT LACERATION Time Seen by Provider: 05/05/18 08:27 Hx Obtained From: Patient Laceration Location: Foot - right Mechanism Of Injury: Sharp Trauma Onset/Duration: Sudden Onset, Lasting Days - 1, Still Present Severity: Moderate Pain Intensity: 0 Pain Scale Used: 0-10 Numeric Aggravating Factors: Movement - Allergies/Home Medications Allergies/Adverse Reactions: Allergies Allergy/AdvReac Type Severity Reaction Status Date / Time Sulfa (Sulfonamide Allergy Rash, Verified 05/05/18 08:39 Antibiotics) headaches sulfacetamide Allergy Rash, Verified 05/05/18 08:39 headaches tramadol AdvReac Severe Dizziness Verified 05/05/18 08:39 ENVIRONMENTAL/SEASONAL Allergy Intermediate SINUS Uncoded 09/14/16 08:05 HAYFEVER INFECTIONS sensitivity to amoxicillin AdvReac "I felt Uncoded 05/05/18 08:42 yucky" Home Medications: Home Medications Acetaminophen TAB* [Tylenol TAB*] 650 - 975 mg PO Q6H PRN 05/05/18 [History Confirmed 05/05/18] Arthromax Advance 1 each PO BID 05/05/18 [History Confirmed 05/05/18] Ascorbic Acid TAB* [Vitamin C TAB*] 1,000 mg PO DAILY 05/05/18 [History Confirmed 05/05/18] Aspirin EC TAB* [Ecotrin EC Low Dose 81 MG*] 81 mg PO DAILY 05/05/18 [History Confirmed 05/05/18] Atorvastatin* [Lipitor*] 20 mg PO DAILY 05/05/18 [History Confirmed 05/05/18] Bone Meal/Ergocalciferol (D2) [Bone Meal-Vitamin D Tablet] 2 each PO BID [History Confirmed 05/05/18] Cholecalciferol TAB* [Vitamin D TAB*] 3,000 unit PO DAILY 05/05/18 [History Confirmed 05/05/18] Fish Oil/Borage/Flax/Om3,6,9 1 [[place] 3-6-9 1,200 mg Softgel] 2,500 mg PO BID [History Confirmed 05/05/18] Fluticasone HFA 110 mcg(NF) [Flovent HFA 110 mcg(NF)] 1 puff INH BID 05/05/18 [ History Confirmed 05/05/18] Fluticasone NASAL SPRAY 50MCG* [Flonase NASAL SPRAY 50MCG*] 2 spray BOTH NARES QPM 05/05/18 [History Confirmed 05/05/18] Magnesium Oxide [Magnesium] 500 mg PO DAILY 05/05/18 [History Confirmed 05/05/18 ] Milk Thistle 760 gm MC BID 05/05/18 [History Confirmed 05/05/18] Potassium 99 mg PO DAILY 05/05/18 [History Confirmed 05/05/18] Ubidecarenone [Coq10] 100 mg PO DAILY 05/05/18 [History Confirmed 05/05/18] Vitamin B Complex CAP* [B Complex CAP*] 1 cap PO DAILY 05/05/18 [History Confirmed 05/05/18] Vitamin THERAPEUTIC TAB* [Theragran TAB*] 1 tab PO DAILY 05/05/18 [History Confirmed 05/05/18] Warfarin TAB(*) [Coumadin TAB(*)] 2.5 mg PO DAILY 05/05/18 [History Confirmed ] dilTIAZem HCl [Diltiazem 24Hr ER] 300 mg PO DAILY 05/05/18 [History Confirmed ] PMH/Surg Hx/FS Hx/Imm Hx Cardiovascular History: Cardiac Disease, Hypertension, Atrial Fibrillation Respiratory History: Asthma - Surgical History Surgical History: Yes Surgery Procedure, Year, and Place: LEFT INGUINAL HERNIA REPAIR A CHILD- [facility]. 1964 BILATERAL TUBAL LIGATION, [place]. 2002 LEFT [place]OP[place], [facility]. 04/2009 LEFT ANKLE [place]IF, [facility] [place]. 05/2009 LEFT ANKLE HARDWARE REMOVAL, [facility] [place]. 08/2009 METRONIC PACEMAKER INSERTION, [facility] [place]. BILATERAL CATARACT EXTRACTIONS WITH IOL IMPLANTS 2013 [facility] [place]. 2017 Right total hip [facility] [place] - Family History Known Family History: Positive: Hypertension - Social History Alcohol Use: Occasionally Alcohol Amount: 1 GLASS WINE/MONTH Substance Use Type: None Smoking Status (MU): Former Smoker Type: Cigarettes Amount Used/How Often: 1 PPD/FOR 20 YRS (OFF AND ON) Length of Time of Smoking/Using Tobacco: 20 YRS Have You Smoked in the Last Year: No When Did the Patient Quit Smoking/Using Tobacco: 1984 - Immunization History Most Recent Influenza Vaccination: NONE Most Recent Tetanus Shot: Unsure if since 2012 Most Recent Pneumonia Vaccination: 2016 Review of Systems All Other Systems Reviewed And Are Negative: Yes Constitutional: Positive: Negative Skin: Positive: Negative Eyes: Positive: Negative ENT: Positive: Negative Respiratory: Positive: Negative Cardiovascular: Positive: Negative Is Patient Immunocompromised?: No Physical Exam Triage Information Reviewed: Yes Appearance: Well-Appearing, No Pain Distress, Well-Nourished Vital Signs: Initial Vital Signs Temp 98.7 F 05/05/18 08:28 Pulse 88 05/05/18 08:28 Resp 20 05/05/18 08:28 BP 156/71 05/05/18 08:28 Pulse Ox 96 05/05/18 08:28 Vital Signs Reviewed: Yes Eye Exam: Normal Eyes: Positive: Conjunctiva Clear ENT: Positive: Normal ENT inspection, Hearing grossly normal, Pharynx normal Neck: Positive: Supple, Nontender, No Lymphadenopathy Respiratory: Positive: Chest non-tender, Lungs clear, Normal breath sounds, No respiratory distress Cardiovascular: Positive: RRR, No Murmur, Pulses Normal Skin: Positive: Other - small laceration right foot , plantar foot , 1/2 cm in diameter, + active bleeding cannot stop bleeding with pressure Laceration Repair - Laceration Repair 1 Description: Linear Laceration Size After Repair: Length (cm) - 1/2, Width (mm) - 1 Modified For Repair: No Anesthesia Used: 2.0% Lido Additive Used (in ml): Epi Cleansing Completed Via Routine Prep: Yes Irrigation With Pressure Irrigation Device: Yes Closure Method: Single Layer Suture Of: Skin Suture Type: Nylon - 6.0 x 4 Laceration Course/Dx - Diagnosis Provider Diagnosis: Laceration of right foot Discharge - Sign-Out/Discharge Documenting (check all that apply): Patient Departure All imaging exams completed and their final reports reviewed: No Studies - Discharge Plan Condition: Stable Disposition: HOME Patient Education Materials: Laceration (ED) Referrals: Leslye Lombardi MD [Primary Care Provider] - Additional Instructions: follow up in 7 days for suture removal - Billing Disposition and Condition Condition: STABLE Disposition: Home
== END 2018-05-05 09:45 | disposition home or self-care (01) ==
LOC: UCCORT 08:03
DX: S91.311A Laceration without foreign body, right foot, initial encounter (principal); W26.9XXA Contact with unspecified sharp object(s), initial encounter; Y92.9 Unspecified place or not applicable; Z79.01 Long term (current) use of anticoagulants; Z88.2 Allergy status to sulfonamides; Z88.8 Allergy status to other drugs, medicaments and biological substances; Z88.0 Allergy status to penicillin; Z88.5 Allergy status to narcotic agent; I10 Essential (primary) hypertension; I51.9 Heart disease, unspecified; J45.909 Unspecified asthma, uncomplicated; Z87.891 Personal history of nicotine dependence
CPT/HCPCS: 12001; 90471; 90715; 99211; G0463

== ENCOUNTER 2018-05-12 09:51 | Emergency (ER) | payer MEDICARE ==
[2018-05-12 10:21] VITALS: BP 145/73
--- NOTE | 2018-05-12 11:04 | UC ---
General HPI - HPI Summary HPI Summary: sutres R foot x 1 week. here for removal, no complaints. - History of Current Complaint Chief Complaint: UCSkin Stated Complaint: STITCHES REMOVAL Time Seen by Provider: 05/12/18 10:53 Hx Obtained From: Patient Pain Intensity: 0 Associated Signs & Symptoms: Negative: Edema, Fever - Allergy/Home Medications Allergies/Adverse Reactions: Allergies Allergy/AdvReac Type Severity Reaction Status Date / Time Sulfa (Sulfonamide Allergy Rash, Verified 05/12/18 10:16 Antibiotics) headaches sulfacetamide Allergy Rash, Verified 05/12/18 10:16 headaches tramadol AdvReac Severe Dizziness Verified 05/12/18 10:16 ENVIRONMENTAL/SEASONAL Allergy Intermediate SINUS Uncoded 05/12/18 10:16 HAYFEVER INFECTIONS sensitivity to amoxicillin AdvReac "I felt Uncoded 05/12/18 10:16 yucky" PMH/Surg Hx/FS Hx/Imm Hx Endocrine History: Dyslipidemia Cardiovascular History: Cardiac Disease - Surgical History Surgical History: Yes Surgery Procedure, Year, and Place: LEFT INGUINAL HERNIA REPAIR A CHILD- [facility]. 1964 BIL[place]AL T[place] LIG[place], [place]. [place] [facility] [place]LE [place] [facility] [place] 05/2009 LEFT ANKLE HARDWARE [place] [facility] [place]. 08/2009 METRONIC PACEM[place]ER [place] [facility] [place] BILATERAL CATARACT EXTRACTIONS WITH IOL IMPLANTS [place] [facility] [place] Right [place] [facility] [place] - Family History Known Family History: Positive: Hypertension - Social History Alcohol Use: Occasionally Alcohol Amount: 1 GLASS WINE/MONTH Substance Use Type: None Smoking Status (MU): Former Smoker Type: Cigarettes Amount Used/How Often: 1 PPD/FOR 20 YRS (OFF AND ON) Length of Time of Smoking/Using Tobacco: 20 YRS Have You Smoked in the Last Year: No When Did the Patient Quit Smoking/Using Tobacco: 1984 - Immunization History Most Recent Influenza Vaccination: NONE Most Recent Tetanus Shot: Unsure if since 2012 Most Recent Pneumonia Vaccination: 2016 Vaccination Up to Date: Yes Review of Systems All Other Systems Reviewed And Are Negative: Yes Constitutional: Negative: Fever Skin: Negative: Rash Eyes: Positive: Negative ENT: Positive: Negative Respiratory: Positive: Negative Cardiovascular: Positive: Negative Gastrointestinal: Positive: Negative Genitourinary: Positive: Negative Motor: Negative: Decreased ROM Neurovascular: Positive: Negative Musculoskeletal: Negative: Edema Neurological: Positive: Negative Psychological: Positive: Negative Physical Exam Triage Information Reviewed: Yes Appearance: Well-Appearing Vital Signs: Initial Vital Signs Temp 97.3 F 05/12/18 10:17 Pulse 100 05/12/18 10:17 Resp 18 05/12/18 10:17 BP 145/73 05/12/18 10:17 Pulse Ox 97 05/12/18 10:17 Vital Signs Reviewed: Yes Eyes: Positive: Conjunctiva Clear ENT: Positive: Normal ENT inspection Respiratory: Positive: Lungs clear Cardiovascular: Positive: RRR, No Murmur Abdomen Description: Positive: Nontender, No Organomegaly, Soft Bowel Sounds: Positive: Present Musculoskeletal: Positive: ROM Intact Neurological: Positive: Alert Psychological: Positive: Age Appropriate Behavior Skin Exam: Normal, Other - 4 stitiches R foot with no red or swelling. foot has full s/v/m function. Course/Dx - Course Course Of Treatment: sutures removed. wound edges inverted and center appears healed but wounds opens slightly thus prep site with mastisol and single wide strip applied to reinforce wound until more healing. - Diagnoses Provider Diagnosis: Visit for suture removal Discharge - Sign-Out/Discharge Documenting (check all that apply): Patient Departure All imaging exams completed and their final reports reviewed: No Studies - Discharge Plan Condition: Stable Disposition: HOME Patient Education Materials: Steristrips (ED), Stitches Removal (ED) Referrals: Leslye Lombardi MD [Primary Care Provider] - 7 Days - Billing Disposition and Condition Condition: STABLE Disposition: Home
== END 2018-05-12 11:08 | disposition home or self-care (01) ==
LOC: UCCORT 09:51
DX: S91.311D Laceration without foreign body, right foot, subsequent encounter (principal); Z88.2 Allergy status to sulfonamides; Z88.8 Allergy status to other drugs, medicaments and biological substances; Z88.6 Allergy status to analgesic agent; Z87.891 Personal history of nicotine dependence; X58.XXXD Exposure to other specified factors, subsequent encounter

== ENCOUNTER 2018-11-09 07:10 | Day surgery (SDC) | payer MEDICARE ==
[~2018-11-09 07:10] MED LIST changes: +Buffered Lidocaine 1% SYRIN* 1 ML/SYRINGE INTRADERM ONE; -Buffered Lidocaine 1% SYRIN* 3 ML/SYR SYRINGE INTRADERM ONE; +Dexamethasone IV* 4 MG/ML 1 ML (4 MG) IV SLOW PU ONE; +Famotidine IV* 10 MG/ML 2 ML (20 mg) IV ONE; +Lactated Ringers 1000 ML Bag* 1,000 ML IV SCH; -NS 0.9% 1000 ML* 1,000 ML IV SCH
[2018-11-09] MEDS ORDERED: Dexamethasone IV* 4 MG/ML 1 ML (4 MG) ONE (07:30)
[2018-11-09] MEDS ORDERED: Buffered Lidocaine 1% SYRIN* 1 ML/SYRINGE INTRADERM ONE (07:31)
[2018-11-09] MEDS ORDERED: Famotidine IV* 10 MG/ML 2 ML (20 mg) ONE (07:31)
[2018-11-09] MEDS ORDERED: ceFOXitin 2 GM IVPREMIX* 2 GM/50 ML BAG ONE (07:31)
[2018-11-09 08:09] LABS: ABS Eosinophils 0.1 10^3/ul (0-0.6); ABS Lymphocytes 1.6 10^3/ul (1.0-4.8); ABS Monocytes 0.6 10^3/ul (0-0.8); ABS Neutrophils 3.9 10^3/ul (1.5-7.7); Eosinophil % 2.1 %; Hematocrit 41 % (35-47); Lymphocyte % 25.1 %; Mean Corpuscular HGB Conc 34 g/dL (31-36); Mean Corpuscular Hemoglobin 31 pg (27-31); Mean Corpuscular Volume 92 fL (80-97); Mean Platelet Volume 7.3 fL (7.4-10.4); Nucleated Red Blood Cells % 0.2; Platelet Count 237 10^3/uL (150-450); Red Blood Count 4.44 10^6 /uL (3.70-4.87); Red Cell Distribution Width 14 % (10-15); White Blood Count 6.3 10^3/uL (3.5-10.8)
[2018-11-09 08:23] LABS: Albumin 4.4 g/dL (3.2-5.2); Albumin/Globulin Ratio 1.5 (1-3); BUN/Creatinine Ratio 21.6 (8-20); Calcium 9.5 mg/dL (8.6-10.3); EGFR African American 66.7 (>60); EGFR Non-African American 55.1 (>60); Globulin 2.9 g/dL (2-4); INR 1.04 (0.82-1.09); Total Bilirubin 0.9 mg/dL (0.2-1.0); Total Protein 7.3 g/dL (6.4-8.9)
[2018-11-09] MEDS ORDERED: oxyCODONE/Acetamin 5/325 MG* TAB PO PRN (08:57)
[2018-11-09] MEDS ORDERED: Naloxone* 0.4 MG/ML 1 ML VIAL IV PRN (08:57)
[2018-11-09] MEDS ORDERED: Ketorolac INJ* 30 MG/ML 1 ML VIAL IV PRN (08:57)
[2018-11-09] MEDS ORDERED: DiMENhydriNATE IV* 50 MG/ML VIAL IV PUSH PRN (08:57)
[2018-11-09] MEDS ORDERED: fentaNYL* 50 MCG/ML 2 ML VIAL (100 MCG VIAL) IV PRN (08:57)
[2018-11-09] MEDS ORDERED: HYDROcodone/ACETAMIN 5-325 MG* 1 TAB PO PRN (08:57)
[2018-11-09] MEDS ORDERED: Lidocain 1% EPI 1:100,000 * 30 ML MDV ONE (09:00)
[2018-11-09] MEDS ORDERED: Bupivacaine 0.5%* 50 ML VIAL ONE (09:06)
[2018-11-09] MEDS ORDERED: Midazolam* 1 MG/ML 2 ML VIAL (2 MG) ONE (09:13)
[2018-11-09] MEDS ORDERED: fentaNYL* 50 MCG/ML 2 ML VIAL (100 MCG VIAL) ONE (09:13)
[2018-11-09] MEDS ORDERED: Lidocaine 1% INJ* 10 MG/ML 30 ML SDV ONE (09:17)
[2018-11-09] MEDS ORDERED: Propofol* 10 MG/ML 20 ML BTL ONE (09:24)
[2018-11-09] MEDS ORDERED: Lidocaine 2% PF * 5 ML VIAL ONE (09:24)
[2018-11-09] MEDS ORDERED: Ondansetron INJ* 2 MG/ML VIAL ONE (09:52)
[2018-11-09 11:07] VITALS: BP 135/67
--- NOTE | 2018-11-09 21:52 | OP ---
DATE OF OPERATION: 11/09/18 - [facility] DATE OF : 39 SURGEON: Kaylan Clifton MD CNC FIELD SERVICE ENGINEER: None. ANESTHESIOLOGIST: Dr. Guy. ANESTHESIA: MAC with paracervical block. PRE-OP DIAGNOSIS: Postmenopausal bleeding. POST-OP DIAGNOSIS: Postmenopausal bleeding. OPERATIVE PROCEDURE: Dilation, curettage, and hysteroscopy. ESTIMATED BLOOD LOSS: Minimal. URINE OUTPUT: 300 cc of clear yellow urine. FLUIDS: 850 cc of crystalloid. DESCRIPTION OF PROCEDURE: The patient was placed in dorsal lithotomy position. Legs were placed in [place] [employer] stirrups. The perineum and vagina were prepped and draped in a sterile standard fashion. The patient was identified with universal protocol for correct procedure, position, and patient. Straight cath was placed for drainage of 300 cc of clear yellow urine. Straight cath was then removed. A sterile speculum was then inserted. The cervix was visualized and a paracervical block was given 1% lidocaine 9 cc. A single- tooth tenaculum was placed on the anterior lip and a careful dilation was then carried out on the stenotic cervix first using a lacrimal duct probe and then moving to Hegar dilators. The hysteroscope was inserted half way through the dilation process just to confirm where the endocervical canal was located and then the ongoing dilation was carried out to 6-mm Hegar dilator. A hysteroscope was then inserted and confirmed excellent dilation and mucus was noted to extrude from the cervical os prior to placement of the hysteroscope. The uterine cavity was noted to be atrophic, calcified with no masses or disruption. The hysteroscope was then removed. Sharp curettage was then performed. Hysteroscope was reinserted confirming good sampling, although there was minimal tissue noted given the atrophic appearance of the endometrium. Single-tooth tenaculum was removed. Sterile speculum was removed. All sponge, instrument, and blade counts were correct at the case. The patient tolerated the procedure well and went to recovery room in stable condition. [id number]/[facility] #: [id number] [facility] HOSPITALSepideh
== END 2018-11-09 11:16 | disposition home or self-care (01) ==
LOC: OR 07:10
PROVIDERS: ATTEND Obstetrics & Gynecology
PROC: 0UDB8ZZ Extraction of Endometrium, Via Natural or Artificial Opening Endoscopic (ICD-10-PCS; principal; 2018-11-09 09:00)
DX: N95.0 Postmenopausal bleeding (principal); N76.89 Other specified inflammation of vagina and vulva; I11.9 Hypertensive heart disease without heart failure; R32 Unspecified urinary incontinence
CPT/HCPCS: 36415; 80053; 85025; 85610; 86850; 86900; 86901; 88305; J0694; J1100; J2250; J2405; J2704; J3010; J3490